=== PATIENT | female | born 1930 | race Hispanic/Latino ===

== ENCOUNTER → 2018-08-25 | Day surgery (SDC) | payer MEDICARE ==
[~2018-08-25] MED LIST: AMLODIPINE BESY10 MG PO; ARICEPT5 MG PO; ASPIRIN81 MG; ATORVASTATIN CA20 MG PO; COMPLETE M9 MG/15 ML; DEXAMETHASONE SOD PHOS INJ 4 MG/ML VIAL ONE; EPHEDRINE SULFATE INJ 50 MG/10 ML SYR ONE; FENTANYL CITRATE/PF 100MCG/2 ML INJ ONE; FERROUS SULFAT325 MG; LEVETIRACETAM1000 MG; LIDOCAINE HCL 2% LOCAL INJ 5 ML SDV VIAL INJ ONE; NAMENDA10 MG; ONDANSETRON HCL INJ 2MG/ML 2ML 2 MG/ML VIAL ONE; OR PHACO EYE KIT ONE; PHENYTOIN SODI100 MG; PREDNISOLO15 MG/5 ML PO; PREOP PHACO EYE KIT ONE; PROPOFOL IV EMULSION 10 MG/ML 20 ML VIAL ONE; REQUIP0.25 MG; SEVOFLURANE INHAL SOLN 250 ML PEN BTL ONE
--- OUTSIDE RECORDS SUMMARY | 2018-08-25 10:06 | XMS REPORT | Clinical Summary ---
Author Author [facility] Address Unknown Phone Unavailable Care Team Providers Care Eye Technician Name Role Phone Rose El MD PCP Allergies No Known Allergies Medications End Date Status Medication Sig Dispensed Refills Start Date Active risperiDONE (RisperDAL) Take 0.5 mg 0 0.5 MG tablet by mouth daily. At night Active donepezil (ARICEPT) 5 MG Take 5 mg by 0 tablet mouth nightly. Active diphenhydrAMINE Take 25 mg by 0 (BENADRYL) 25 mg tablet mouth daily as needed for allergies or sleep. Active Problems Problem Noted Date Alzheimer's disease 06/25/2016 Essential hypertension 06/25/2016 Atrial fibrillation 06/25/2016 Status epilepticus 06/24/2016 Social History Date Tobacco Use Types Packs/Day Years Used Never Smoker Alcohol Use Drinks/Week oz/Week Comments No Sex Assigned at Date Recorded Not on file Industry Job Start Date Occupation Not on file Not on file Not on file Travel End Travel History Travel Start No recent travel history available. Last Filed Vital Signs Not on file Plan of Treatment Health Maintenance Due Date Last Done Comments SHINGLES VACCINES (#1) 12/25/1981 65+ PNEUMOCOCCAL VACCINE 12/25/1996 (1 of 2 - PCV13) PNEUMOCOCCAL 12/25/1996 POLYSACCHARIDE VACCINE AGE 65 AND OVER INFLUENZA VACCINE 01/05/2018 Results Not on fileafter 08/24/2017 Insurance Payer Benefit Subscriber ID Type Phone Address Plan / Group MEDICARE MEDICARE xxxxxxxxxx Medicare [place], [place] PART A AND B Advance Directives Patient has advance care planning documents, and code status on file. For more i nformation, please contact: Alec Leija [address] [place] [address] Date Inactivated Comments Code Status Date Activated 06/27/2016 7:02 PM Full Code 06/25/2016 7:12 AM Code Status decision reached by: Patient
--- OUTSIDE RECORDS SUMMARY | 2018-08-25 10:06 | XMS REPORT ---
[facility] Address Unknown Phone Unavailable Care Team Providers Care Translational Specialist Name Role Phone SANTOS GALLEGO Unavailable Unavailable Payers Payer Name Policy Type Policy Number Effective Date Expiration Date Problems This patient has no known problems. Allergies, Adverse Reactions, Alerts Allergy Name Allergy Type Status Severity Reaction(s) Onset Date Inactive Date Treating Clinician Comments No Known Allergies DA Active U 2018-06-24 00:00:00 No Known Allergies DA Active U 2018-06-11 00:00:00 No Known Allergies DA Active U 2017-11-16 00:00:00 Medications This patient has no known medications. Results Test Description Test Time Test Comments Text Results Atomic Results Result Comments Culture, Blood Routine 2016-08-16 13:13:00 Specimen: BloodCollected: 08/11/2016 12:40 Status: Final Last Updated: 08/16/2016 13:13 (1) ER Bed 5 Culture Result (Final) (Final) No Growth After 5 Days Culture, Blood Routine 2016-08-16 13:13:00 Specimen: BloodCollected: 08/11/2016 11:45 Status: Final Last Updated: 08/16/2016 13:13 (1) ER Bed 5 Culture Result (Final) (Final) No Growth After 5 Days Partial Thromboplastin Time 2016-08-11 12:37:00 aPTT (test code=PTT) 25.90 seconds 24.39-37.25 Prothrombin [id number] 12:36:00* Test Item Value Reference Range Comments PT (test code=PT) 10.10 seconds 9.78-13.35 INR (test code=INR) 0.88 Ratio 0.6-1.2 [id number] 12:18:00* Test Item Value Reference Range Comments NT ProBnp (test code=PBNP) 495 pg/mL 0-449 Troponin [id number] 12:18:00* Test Item Value Reference Range Comments Troponin T (test code=PAPO) <0.010 ng/mL 0.000-0.090 Comprehensive Metabolic [id number] 12:18:00* Test Item Value Reference Range Comments Sodium (test code=NA) 135 mmol/L 135-145 Potassium (test code=K) 3.4 mmol/L 3.5-5.1 Chloride (test code=CL) 98 mmol/L 98-105 Carbon Dioxide (test code=CO2) 27 mmol/L 22-29 Glucose (test code=GLU) 129 mg/dL 70-115 Blood Urea Nitrogen (test code=BUN) 10 mg/dL 8-23 Creatinine (test code=CREAT) 0.9 mg/dL 0.5-0.9 Calcium (test code=CA) 8.5 mg/dL 8.3-10.5 Prot Total (test code=TP) 6.8 g/dL 6.4-8.3 Albumin (test code=ALB) 4.0 g/dL 3.5-5.2 A/G Ratio (test code=AGRATIO) 1.4 Ratio Globulin (test code=GLOB) 2.8 2.9-3.1 Bili Total (test code=TBIL) <0.1 mg/dL 0.1-0.9 Alk Phos (test code=APHOS) 134 U/L 35-104 AST (test code=AST) 20 U/L 1-32 ALT (test code=ALT) 13 U/L 1-33 BUN/Creatinine Ratio (test code=BCRATIO) 11.1 Anion Gap (test code=AGAP) 10 mmol/L 7-16 Estimated GFR (test code=GFR) >60 mL/min/1.73m2 eGFR (estimated Glomerular Filtration Rate) is an estimated value,calculated from the patient's serum creatinine using the MDRD equation.It is NOT the patient's actual GFR. The eGFR provides a more clinicallyuseful measure of kidney disease than serum creatinine alone.This calculation takes sex and race into account, if the informationis provided. If the race is not provided, and the patient isAfrican-Mongolian, multiply by 1.212. If sex is not provided, and thepatient is female, multiply by 0.742. Results for patients <18 years ofage have not been validated by the MDRD study and should be interpretedwith caution.eGFR Result Interpretation:eGFR > or=60 is in the Normal RangeeGFR < 60 may mean kidney diseaseeGFR < 15 may mean kidney failureRanges recommended by the National Kidney Foundat ion,http://nkdep.nih.gov [id number] 12:18:00* Test Item Value Reference Range Comments Lipase (test code=LIP) 40 U/L 13-60 CK [id number] 12:18:00* Test Item Value Reference Range Comments CK (test code=CK) 105 U/L 26-192 CK [id number] 12:18:00* Test Item Value Reference Range Comments CK (test code=CK) 105 U/L 26-192 CKMB (test code=CKMB) 2.4 ng/mL 0.0-2.8 CKMB% (test code=CKMBP) 2.3 % 0.0-3.4 Urinalysis [id number] 12:06:00* Test Item Value Reference Range Comments Color (test code=COLOR) Yellow Yellow,Straw,Pl yellow Clarity (test code=CLAR) Clear Clear Specific [place] (test code=SPGR) 1.007 1.001-1.035 pH (test code=PH) 5.0 5.0-9.0 Ketone (test code=KET) Negative mg/dL Negative Glucose (test code=GLUCUR) Negative mg/dL Negative Protein (test code=PROT) Negative mg/dL Negative Bilirubin (test code=BILI) Negative mg/dL Negative Occult Blood (test code=UDOB) Negative Negative Urobilinogen (test code=UROB) 0.2 mg/dL 0.2-1.0 Nitrite (test code=NIT) Negative Negative Leuk Esterase (test code=LEUK) Negative Negative Micros Exam (test code=MEXAM) Not indicated CBC with [id number] 12:00:00* Test Item Value Reference Range Comments WBC (test code=WBC) 6.4 K/cumm 4.4-10.5 RBC (test code=RBC) 3.94 M/cumm 3.75-5.20 Hemoglobin (test code=HGB) 10.3 gm/dL 12.2-14.8 Hematocrit (test code=HCT) 34.1 % 36.5-44.4 MCV (test code=MCV) 86.4 fL 80-100 MCH (test code=MCH) 26.1 pg 27.0-32.5 MCHC (test code=MCHC) 30.2 g/dL 32.0-37.5 RDW (test code=RDW) 14.9 % 11.5-14.5 Platelet Count (test code=PLTCT) 226 K/cumm 140-440 MPV (test code=MPV) 7.5 fL Diff Method (test code=DIFFM) Auto Neutrophil (test code=NEUT) 70.0 % 36-70 Lymphocyte (test code=LYMPH) 20.3 % 12-44 Monocyte (test code=MONO) 8.8 % 0-11 Eosinophil (test code=EOS) 0.3 % 0-7 Basophil (test code=BASO) 0.5 % 0-2 Neutro Abs (test code=ANEUT) 4.5 K/cumm 1.6-7.4 Lymph Abs (test code=ALYMPH) 1.3 K/cumm 0.5-4.6 [place] Abs (test code=AMONO) 0.6 K/cumm 0.0-1.2 Eos Abs (test code=AEOS) 0.02 K/cumm 0.00-0.74 Baso Abs (test code=ABASO) 0.0 K/cumm 0.00-0.21
[2018-08-25 14:30] VITALS: BP 144/79
== END | disposition home or self-care (01) ==
LOC: OR 09:38
PROVIDERS: ATTEND Ophthalmology
DX: H25.11 Age-related nuclear cataract, right eye (principal); I10 Essential (primary) hypertension; G30.9 Alzheimer's disease, unspecified; F02.80 Dementia in other diseases classified elsewhere, unspecified severity, without behavioral disturbance, psychotic disturbance, mood disturbance, and anxiety; R56.9 Unspecified convulsions; Z79.82 Long term (current) use of aspirin; Z95.0 Presence of cardiac pacemaker; Z86.73 Personal history of transient ischemic attack (TIA), and cerebral infarction without residual deficits
CPT/HCPCS: 66984; J1100; J2001; J2405; J2704; V2632

== ENCOUNTER → 2018-09-08 | Day surgery (SDC) | payer MEDICARE ==
[~2018-09-08] MED LIST changes: -DEXAMETHASONE SOD PHOS INJ 4 MG/ML VIAL ONE; -FENTANYL CITRATE/PF 100MCG/2 ML INJ ONE; +MIDAZOLAM HCL 2 MG/2 ML VIAL ONE; -ONDANSETRON HCL INJ 2MG/ML 2ML 2 MG/ML VIAL ONE
--- OUTSIDE RECORDS SUMMARY | 2018-09-08 10:16 | XMS REPORT | Clinical Summary ---
Author Author [facility] Address Unknown Phone Unavailable Care Team Providers Care Home Demonstration Agent Name Role Phone Rose El MD PCP [...] VACCINE AGE 65 AND OVER INFLUENZA VACCINE 01/05/2019 Results Not on fileafter 09/07/2017 Insurance Payer Benefit Subscriber ID Type Phone Address Plan / Group MEDICARE MEDICARE xxxxxxxxxx Medicare [place], [place] PART A AND B Advance Directives Patient has advance care planning documents, and code status on file. For more i nformation, please contact: Alec Leija [address] [place] [address] Date Inactivated Comments Code Status Date Activated 06/27/2016 7:02 PM Full Code 06/25/2016 7:12 AM Code Status decision reached by: Patient
[2018-09-08 14:15] VITALS: BP 118/76
--- NOTE | 2018-09-14 00:35 | Operative Report ---
DATE OF PROCEDURE: 09/08/2018 SURGEON: Adam Joel MD PREOPERATIVE DIAGNOSIS: Visually significant cataract in the left eye. POSTOPERATIVE DIAGNOSIS: Visually significant cataract in the left eye. PROCEDURE: Phacoemulsification with posterior chamber intraocular lens. ANESTHESIA: General. COMPLICATIONS: None. LENS: Luis Carlos SN60WF 24.5 diopter lens. DESCRIPTION OF PROCEDURE: The patient was taken to the operating room, where she was placed under general anesthesia due to early dementia and inability to . The patient had tetracaine 0.5% drops placed in the eye. The patient's eye was then prepped and draped in the usual sterile ophthalmic way. A lid speculum was placed in the eye and a sideport incision was made. A 0.2 mL of 1% lidocaine preservative free was injected in the anterior chamber. Viscoelastic was placed in the anterior chamber and a keratome was used to make a temporal clear corneal incision. A cystotome and Utrata forceps were used to create anterior capsulorrhexis without any complications. Hydrodissection and hydrodelineation were then performed. A good fluid wave was noted. Phacoemulsification probe was placed in the eye and the nucleus was phacoemulsified using the divide and conquer technique. Irrigation aspiration handpiece was then used to removed any residual cortical material. Viscoelastic was placed in the capsular bag and an Luis Carlos [id number] diopter lens was placed in the bag without any complication. Irrigation aspiration handpiece was used to remove any residual viscoelastic material from the eye. Miostat was injected into the anterior chamber and the wound was checked to make sure there was no evidence of leakage. Two drops of Vigamox were placed in the eye Maxitrol ointment and a patch and Jacinto shield placed in the eye. The patient tolerated the procedure well and was taken to the recovery room in good condition. The patient will be seen in my office tomorrow. MD TAIWO Plummer/MODL /[id number]
== END | disposition home or self-care (01) ==
LOC: OR 10:15
PROVIDERS: ATTEND Ophthalmology
DX: H25.12 Age-related nuclear cataract, left eye (principal); I10 Essential (primary) hypertension; G40.909 Epilepsy, unspecified, not intractable, without status epilepticus; K21.9 Gastro-esophageal reflux disease without esophagitis; R05 Cough; R53.1 Weakness; R42 Dizziness and giddiness; G30.9 Alzheimer's disease, unspecified; F02.80 Dementia in other diseases classified elsewhere, unspecified severity, without behavioral disturbance, psychotic disturbance, mood disturbance, and anxiety; Z79.82 Long term (current) use of aspirin; Z95.0 Presence of cardiac pacemaker; Z86.73 Personal history of transient ischemic attack (TIA), and cerebral infarction without residual deficits
CPT/HCPCS: 66984; J2001; J2250; J2704; V2632

== ENCOUNTER 2021-02-15 07:17 | Emergency (ER) | payer MEDICARE ==
[~2021-02-15] VITALS: Ht 152.4 cm; Wt 52.2 kg
[~2021-02-15 07:17] MED LIST changes: -EPHEDRINE SULFATE INJ 50 MG/10 ML SYR ONE; -LIDOCAINE HCL 2% LOCAL INJ 5 ML SDV VIAL INJ ONE; -MIDAZOLAM HCL 2 MG/2 ML VIAL ONE; -OR PHACO EYE KIT ONE; -PREOP PHACO EYE KIT ONE; -PROPOFOL IV EMULSION 10 MG/ML 20 ML VIAL ONE; -SEVOFLURANE INHAL SOLN 250 ML PEN BTL ONE
[2021-02-15] MEDS ORDERED: DIATRIZOATE MEGL/DIATRIZOA SOD 30 ML BTL PO ONE (07:57)
== END 2021-02-15 08:45 | disposition home or self-care (01) ==
LOC: ER 07:30
DX: Z43.1 Encounter for attention to gastrostomy (principal); R13.10 Dysphagia, unspecified; G30.9 Alzheimer's disease, unspecified; F02.80 Dementia in other diseases classified elsewhere, unspecified severity, without behavioral disturbance, psychotic disturbance, mood disturbance, and anxiety; G40.909 Epilepsy, unspecified, not intractable, without status epilepticus; F41.9 Anxiety disorder, unspecified; M62.58 Muscle wasting and atrophy, not elsewhere classified, other site; Z95.810 Presence of automatic (implantable) cardiac defibrillator
CPT/HCPCS: 74018; 99284